=== PATIENT | male | born 2000 | race African-American/Black ===

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

== ENCOUNTER 2020-09-28 12:08 | Emergency (ER) | payer SELFPAY ==
[2020-09-28 12:17] VITALS: BP 137/80
--- NOTE | 2020-09-28 12:30 | ER Document Report ---
ED Extremity Problem, Lower - General Chief Complaint: Ankle Pain Stated Complaint: ANKLE PAIN Time Seen by Provider: 09/28/20 12:23 Primary Care Provider: REILLY CARRERA MD [Primary Care Provider] - Follow up as needed DANICA MALIK JR, DO [ACTIVE PROVISIONAL STAFF] - Follow up as needed Notes: CHIEF COMPLAINT: Right ankle injury HPI: 19-year-old male presenting for right ankle injury yesterday while playing basketball more sore and difficult to walk today. Was able to walk on it after injury. ROS: See HPI - all other systems were reviewed and are otherwise negative Constitutional: no fever Integumentary: no rash Allergy: no hives Musculoskeletal: + extremity pain or swelling Neurological: no numbness/tingling MEDICATIONS: I agree with the patient medications as charted by the RN. ALLERGIES: I agree with the allergies as charted by the RN. PAST MEDICAL HISTORY/PAST SURGICAL HISTORY: Reviewed and agree as charted by RN. SOCIAL HISTORY: Reviewed and agree as charted by RN. FAMILY HISTORY: No significant familial comorbid conditions directly related to patient complaint EXAM: Reviewed vital signs as charted by RN. CONSTITUTIONAL: Alert and oriented and responds appropriately to questions. Well-appearing; well-nourished HEAD: Normocephalic; atraumatic EYES: Conjunctivae clear, sclerae non-icteric ENT: normal nose; no rhinorrhea; moist mucous membranes NECK: Supple without meningismus CARD: symmetric distal pulses RESP: Normal chest excursion without splinting or tachypnea ABD/GI: non-distended BACK: The back appears normal EXT: Normal ROM in all joints; there is no tenderness over the medial or lateral malleolus of the right ankle. There is no tenderness over the tarsals or metatarsals of the right foot. There is no tenderness on palpation of the proximal fibular region of the right lower extremity. Mild tenderness of the soft tissues just inferior to the medial and lateral malleolus and anterior of the right ankle. Dorsalis pedis and posterior tibial pulses are present in the right foot and ankle. Sensation is intact to the toes with capillary refill less than 3 seconds; no cyanosis, no effusions, no edema SKIN: Normal color for age and race; warm; dry; good turgor; no acute lesions noted NEURO: Moves all extremities equally; Motor and sensory function intact PSYCH: The patient's mood and manner are appropriate. Grooming and personal hygiene are appropriate. MDM: 19-year-old male injury to the right ankle yesterday. I suspect soft tissue injury patient is concerned about a fracture will obtain an x-ray. If negative for acute findings will Mynor wrap crutches limited weightbearing anti- inflammatories orthopedic referral TRAVEL OUTSIDE OF THE [place] IN LAST 30 DAYS: No - Related Data Allergies/Adverse Reactions: No Known Allergies Allergy (Verified 01/10/18 12:47) Past Medical History - Social History Smoking Status: Never Smoker Frequency of alcohol use: None Drug Abuse: None Family History: Reviewed & Not Pertinent Renal/ Medical History: Denies: Hx Peritoneal Dialysis - Immunizations Immunizations up to date: Yes Physical Exam - Vital signs Vitals: Temp Pulse Resp BP Pulse Ox 98.1 F 70 20 137/80 H 100 09/28/20 12:16 09/28/20 12:16 09/28/20 12:16 09/28/20 12:16 09/28/20 12:16 Course - Re-evaluation Re-evalutation: 09/28/20 13:02 No acute fracture noted on x-ray, will Mynor wrap and discharge - Vital Signs Vital signs: Temp Pulse Resp BP Pulse Ox 98.1 F 70 20 137/80 H 100 09/28/20 12:16 09/28/20 12:16 09/28/20 12:16 09/28/20 12:16 09/28/20 12:16 - Laboratory Results Critical Laboratory Results Reviewed: No Critical Results - Radiology Results Critical Radiology Results Reviewed: No Critical Results Procedures - Immobilization Right Ankle Time completed: 13:03 Pre-Proc Neuro Vasc Exam: Normal Immobilizer type: Mynor wrap, Crutches Performed by: PCT Post-Proc Neuro Vasc Exam: Normal, Unchanged from pre-exam Alignment checked and good: Yes Discharge - Discharge Clinical Impression: Right ankle sprain Qualifiers: Encounter type: initial encounter Involved ligament of ankle: unspecified ligament Qualified Code(s): S93.401A - Sprain of unspecified ligament of right ankle, initial encounter Condition: Stable Disposition: HOME, SELF-CARE Additional Instructions: 1. ice and elevate the lower extremity as much as possible 2. utilize the crutches as instructed, weightbearing as tolerated 3. medications for pain as prescribed 4. follow up with orthopedics for further evaluation and treatment, call for appt. Prescriptions: Diclofenac Sodium [Voltaren 50 Mg Tablet.] 50 mg PO BID #20 tablet. Referrals: REILLY CARRERA MD [Primary Care Provider] - Follow up as needed DANICA MALIK JR, DO [ACTIVE PROVISIONAL STAFF] - Follow up as needed
--- NOTE | 2020-09-28 12:59 | RADIOLOGY REPORT (SQ) ---
EXAM DESCRIPTION: ANKLE RIGHT COMPLETE IMAGES COMPLETED DATE/TIME: 09/28/2020 11:38 am REASON FOR STUDY: ankle injury. COMPARISON: None. NUMBER OF VIEWS: Three views. TECHNIQUE: AP, lateral, and oblique radiographic images acquired of the right ankle. LIMITATIONS: None. FINDINGS: MINERALIZATION: Normal. BONES: There is a well corticated ossific density at the medial malleolus just inferior to the tip of the medial tibia which appears chronic. No acute or displaced fracture. JOINTS: Ankle mortise has normal alignment. There is a small joint effusion. SOFT TISSUES: There is soft tissue swelling. No foreign body. OTHER: No other significant finding. 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 There is however it a joint effusion and soft tissue swelling at the medial and lateral malleol i. TECHNICAL DOCUMENTATION: JOB ID: [id number] 2010 [employer]- All Rights Reserved Reading location - IP/workstation name: [email or web address]
== END 2020-09-28 13:23 | disposition home or self-care (01) ==
LOC: ER 12:08
DX: S93.401A Sprain of unspecified ligament of right ankle, initial encounter (principal); W19.XXXA Unspecified fall, initial encounter; Y93.67 Activity, basketball
CPT/HCPCS: 99283